=== PATIENT | male | born 1980 | race Caucasian/White ===

== ENCOUNTER 2017-10-29 09:46 | Emergency (ER) | payer SELFPAY ==
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
[2017-10-29 14:34] VITALS: BP 118/76
== END 2017-10-29 14:29 | disposition home or self-care (01) ==
LOC: ED 09:46
DX: Z48.01 Encounter for change or removal of surgical wound dressing (principal); S01.91XD Laceration without foreign body of unspecified part of head, subsequent encounter